=== PATIENT | female | born 1990 | race Caucasian/White ===

== ENCOUNTER → 2020-08-23 12:42 | Outpatient (REF) | payer OTHER, SELFPAY ==
--- NOTE | 2020-08-23 12:48 | CA_ITS ---
Transthoracic Echocardiogram Patient (Last, First, Middle): Ricarda Rivero L Gender: Female Date of : 1990 Age: 29 Procedure Date: 08/23/2020 Procedure Type: Transthoracic Echocardiogram Location: OP Height: 177.8 cm Weight: 81.65 kg BSA: 2.00 m2 Heart Rate: bpm BP: 122 / 70 mmHg Assembler Tractor: ROSANA Referring MD: Alexey Quintana MD Symptoms: Orthostatic hypotension, Syncope, unspecified syncope type. Study Quality: Fair ECG Rhythm: Sinus Conclusions: - The left ventricular systolic function is normal. The visually estimated ejection fraction is between 65-70%. - No obvious valvular pathology seen on this study. Findings Left Ventricle Normal left ventricular cavity size. There is normal left ventricular wall thickness. The left ventricular systolic function is normal. The visually estimated ejection fraction is between 65-70%. There is no evidence of regional wall motion abnormalities. Diastolic function is normal for age. Right Ventricle Normal right ventricular cavity size and systolic function. Atria The left atrium is normal in size. The right atrium is normal in size. Aortic Valve There is a normal trileaflet aortic valve. There is no aortic valve stenosis. There is no aortic valve regurgitation. Mitral Valve The mitral valve appears normal. There is trace mitral valve regurgitation. There is no mitral valve stenosis. Pulmonic Valve The pulmonic valve was not well visualized. Tricuspid Valve Normal tricuspid valve structure. There is trace tricuspid valve regurgitation. The pulmonary artery systolic pressure is normal. Great Vessels The aortic annulus, sinuses of valsalva, and asc aorta are normal in size. Venous The inferior vena cava is normal in size and collapses greater than 50% with inspiration. Pericardium/Pleural There is no evidence of pericardial effusion. Prior Study Comparison No prior study available for comparison. Recommendations, Care & Conclusions No obvious valvular pathology seen on this study. Measurements 2D Linear Measurements IVSd: 0.80 0.6-0.9/0.6-1.0 cm LVIDd: 4.50 3.9-5.3/4.2-5.9 cm LVIDd Index: 2.25 2.4-3.2/2.2-3.1 cm/m2 LVIDs: 2.88 2.0-3.6 cm LVPWd: 0.80 0.7-1.1 cm Ao Root: 2.50 2.1-3.5 cm LA Diam: 3.30 2.7-3.8/3.0-4.0 cm LAIDs Index: 1.65 1.5-2.3 cm/m2 LV Mass: 141.41 67-162/88-224 g LV Mass Index: 70.70 43-95/49-115 g/m2 LVOT Diam: 2.00 3.0+(-)1.3 cm 2D Systolic Function EF 4C: 74.80 >55% EF 2C: 67.60 >55% Mitral Valve MV Pk E: 0.85 MV PK A: 0.51 MV Decel Time: 310.00 E/A: 1.70 E'Lateral: 18.80 E'Medial: 13.10 E/E' Med: 6.50 E/E' Lat: 4.50 PHT: 91.00 MVA PHT: 2.42 Decel Alfalfa: 2.74 Aortic Valve AoV Pk Ti: 1.42 AoV Mn Ti: 1.00 AoV VTI: 0.29 AoV Pk Grad: 8.00 Aov Mn Grad: 4.00 SHIELA Cont.VTI: 2.40 LVOT LVOT Pk Ti: 1.13 LVOT Mn Ti: 0.75 LVOT VTI: 0.23 LVOT Pk Grad: 5.00 LVOT Mn Grad: 3.00 LVOT Diam: 2.00 LVOT Area: 3.14 Diastolic Function MV Pk E: 0.85 MV Pk A: 0.51 E/A: 1.70 E'Medial: 13.10 E/E' Med: 6.50 E' Laterial: 18.80 E/E' Lat: 4.50 Tricuspid Valve TR Pk Ti: 2.59 TR Pk Grad: 27.00 RA Press: 3.00 RVSP: 30.00 Great Vessels Aorta Ao Root-2D: 2.50 2.0-3.7 cm Ao Asc: 2.50 2.1-3.4 cm Ao Arch: 2.30 Updated in Other Vendor System with Status of Final Alexey Quintana MD electronically signed on 08/24/2020 4:45:24 PM with status of Final
== END ==
LOC: HO.CARD 12:42
PROVIDERS: PCP Internal Medicine; Visit Provider Internal Medicine
DX: I95.1 Orthostatic hypotension (principal)
CPT/HCPCS: 93306

== ENCOUNTER → 2020-08-30 10:58 | Outpatient (BNVA) | payer OTHER, SELFPAY | PROVIDERS: PCP Internal Medicine; Visit Provider Internal Medicine | DX: I95.1 Orthostatic hypotension (principal); R94.09 Abnormal results of other function studies of central nervous system; R55 Syncope and collapse | CPT/HCPCS: 93005; 99212 ==

== ENCOUNTER 2020-11-26 09:31 | Emergency (ER) | payer OTHER, SELFPAY ==
[2020-11-26 10:00] VITALS: BP 127/88; PULSE 78; RESP 16; TEMP 37.1; O2SAT 100; BMI 26.6
--- NOTE | 2020-11-26 10:09 | ED.ALLEREA ---
HPI - Allergic Reaction General Chief complaint: Allergic Reaction Stated complaint: allergic reaction Time Seen by Provider: 11/26/20 10:09 Source: patient and EMS Mode of arrival: EMS Limitations: no limitations History of Present Illness HPI narrative: 30 y/o female with history of autonomic dysfunction and chronic hives presents to the ER from home via EMS for painful, itchy hives all over her body. She reports they started 2 days ago and was seen at [facility] ER. She was started on Prednisone with initial improvement in her symptoms. Today she woke up with worsening of her hives all of her upper legs, scattered areas on her arms, back and trunk as well as left upper eye. She denies any mouth or airway involvement. No SOB or wheezing. She has had several episodes of hives like this but not since 2018. She was evaluated by Derm and budget specialist in the past, only determined allergy was crab. No known exposure to seafood recently, no new soaps, lotions or detergents. MD complaint: hives Onset (ago): day(s) Exposure: unknown Symptoms: rash and itching Severity: similar to previous episodes Treatment prior to arrival: benadryl and steroids Previous Allergic Reaction History: prior ED visit(s) Related Data Home Medications Medication Instructions Recorded Confirmed acyclovir 400 mg tablet 400 mg PO BID 08/30/20 08/30/20 albuterol sulfate 90 mcg/actuation 2 puff INHALATION QID PRN 08/30/20 08/30/20 aerosol inhaler betamethasone dipropionate 0.05 % appl TOPICAL BID PRN 08/30/20 08/30/20 topical cream fluticasone propionate 50 1 spray INTRANASAL DAILY 08/30/20 08/30/20 mcg/actuation nasal spray,suspension gabapentin 100 mg capsule 100 mg PO TID 08/30/20 08/30/20 hydroxyzine HCl 10 mg tablet 10 mg PO TID 08/30/20 08/30/20 norethindrone 1 mg-ethinyl 1 tab PO DAILY 08/30/20 08/30/20 estradiol 20 mcg (21)-iron 75 mg (7) tablet Allergies Allergy/AdvReac Type Severity Reaction Status Date / Time Iodinated Contrast Media Allergy Severe HIVES, SOB Verified 08/30/20 11:10 [CONTRAST, IV] acetaminophen [From VICODIN] Allergy Unknown HIVES Verified 08/30/20 11:10 hydrocodone [From VICODIN] Allergy Unknown HIVES Verified 08/30/20 11:10 shellfish derived Allergy Unknown HIVES Verified 08/30/20 11:10 [SHELLFISH DERIVED] tree nut [TREE NUT] Allergy Unknown HIVES Verified 08/30/20 11:10 From PERTUSSIN CS Allergy Unknown LETHARGY Uncoded 08/30/20 11:10 GRASS Allergy Unknown HIVES Uncoded 08/30/20 11:10 NARCOTICS Allergy Unknown THROAT Uncoded 08/30/20 11:10 CLOSES percocet AdvReac Unknown vomiting Uncoded 08/30/20 11:10 Review of Systems Review of Systems: Constitutional: No Fever, No Chills ENT/Mouth: No sore throat, No Rhinorrhea, No Swallowing Difficulty Eyes: + Eye Pain, No Swelling, + Redness, No vision changes Cardiovascular: No Chest Pain, No SOB, No Orthopnea, No Edema Respiratory: No Cough, No Sputum, No Wheezing, No dyspnea Gastrointestinal: No Nausea, No Vomiting, No Diarrhea, No abdominal Pain Genitourinary: No Dysuria, No Urinary Frequency, No Hematuria Musculoskeletal: No joint pain, No Myalgias Skin: + Skin Lesions,+ rash Neuro: No Weakness, No Numbness, No Dizziness, No Headache Psych: No Anxiety/Panic, No Depression Heme/Lymph: No Bruising, No Lymphadenopathy PMFSH Past Medical History Attestation statement: The following information was validated with the patient. Medical History Abnormal tilt table test Orthostatic hypotension Pituitary adenoma Small fiber neuropathy Syncope and collapse Surgical History History of bilateral breast reduction surgery History of biopsy Family History Family History (Updated 08/30/20 @ 11:09 by ETELVINA Fu) Father No problems noted. Mother Hx of ovarian cancer Social History Social History (Updated 08/30/20 @ 11:09 by ETELVINA Fu) Alcohol intake: never Patient Tobacco Use Status: Never used Tobacco Use of substances other than those prescribed or required for medical reasons: No Advance Directives: No Advance Directives Information Provided: Yes Physical Exam Vital Signs: Vital Signs: Last Vital Signs Temp 98.7 F 11/26/20 10:00 Pulse 78 11/26/20 10:00 Resp 16 11/26/20 10:00 BP 127/88 11/26/20 10:00 Pulse Ox 100 11/26/20 10:00 Body Mass Index 26.6 Appearance: Alert. Oriented X3. No acute distress. Eyes: Pupils equal, round and reactive to light. Left upper orbit with slightly raised urticarial lesion. No lid swelling. EOMI. ENT: Pharynx normal. Normal lips, uvula midline, normal tongue. Neck: Normal inspection. Neck supple. CVS: Normal heart rate and rhythm. Pulses normal. Respiratory: No respiratory distress. Breath sounds normal. Abdomen: Soft and nontender. +BS x4 Skin: Skin warm and dry. Diffuse erythematous maclopapular urticarial rash on anterior and posterior upper legs bilaterally with scattered lesions on bilateral arms, back and trunk. Extremities: No lower extremity edema. Neuro: Oriented X 3. No motor deficit. No sensory deficit. Course Course Course Narrative: 30 y/o female with history of chronic urticaria presenting with acute exacerbation. No airway involvement. Unknown trigger. Vitals are stable and lungs are clear. Will give IV solumedrol, benadryl and pepcid and re-evaluate. Reevaluation(s) Reevaluation #1: Patient reported dizziness with IV benadryl now resolved. Hives are significantly improved. She is stable for discharge home with continuation of prednisone 60 mg as well as benadryl and pepcid PO. She agrees to f/u with her Sales Professional and Bath Solution Maker moving forward. Critical Care Time Critical Care Time Critical Care Time: No Discharge Plan Discharge Clinical Impression: Urticaria Patient Disposition: Home, Self-Care Instructions: Urticaria (ED) Additional Instructions: Continue taking your prednisone as prescribed. Recommend continuing Benadryl 25-50 mg every 6-8 hours. Recommend following back up with your Bath Solution Maker and Sales Professional. If you develop new or worsening symptoms call 911 or come back to the ER for further evaluation. Prescriptions: No Action gabapentin 100 mg capsule 100 mg PO TID RF: 0 albuterol sulfate 90 mcg/actuation HFA aerosol inhaler 2 puff inhalation QID PRN (Reason: wheezing) RF: 0 fluticasone propionate 50 mcg/actuation spray,suspension 1 spray intranasal DAILY RF: 0 norethindrone-e.estradiol-iron 1 mg-20 mcg (21)/75 mg (7) tablet 1 tab PO DAILY RF: 0 hydroxyzine HCl 10 mg tablet 10 mg PO TID RF: 0 betamethasone dipropionate 0.05 % cream topical BID PRNRF: 0 acyclovir 400 mg tablet 400 mg PO BID RF: 0
[2020-11-26] MEDS: Famotidine/PF 20 MG/2 ML VIAL IVPUSH (11:22)
[2020-11-26] MEDS: diphenhydrAMINE HCL 50 MG/ML VIAL IVPUSH (11:29)
[2020-11-26] MEDS: methylPREDNISolone Sod Succ 125 MG/2 ML VIAL IVPUSH (11:29)
[2020-11-26 12:30] VITALS: BP 115/74; PULSE 84; RESP 16; O2SAT 100
--- NOTE | 2020-11-26 12:35 | PC.NURSE ---
rash on both arms have faded since being given medications.
--- NOTE | 2020-11-26 12:56 | PC.NURSE ---
Patient given discharge instructions and verbalized understanding. Rash has significantly improved since arrival in ER. Pt is amb to exit in no distress
== END 2020-11-26 12:57 | disposition home or self-care (01) ==
PROVIDERS: Emergency Provider Emergency Medicine Emergency Medical Services; PCP Internal Medicine
DX: L50.9 Urticaria, unspecified (principal)
CPT/HCPCS: 96374; 96375; 99284; J1200; J2930

== ENCOUNTER 2021-09-17 08:19 | Emergency (ER) | payer OTHER, SELFPAY ==
--- NOTE | ~2021-09-17 | CT_ITS ---
EXAMINATION: CT HEAD WITHOUT CONTRAST CLINICAL INFORMATION: Fall. Head injury. COMPARISON: None TECHNIQUE: Contiguous axial imaging was performed from the skull base to vertex without intravenous administration of contrast. This CT examination was performed using dose optimization techniques as appropriate, variously including the following: *Automated exposure control *Adjustment of mA and/or kV according to patient size (this includes techniques or standardized protocols for targeted exams where dose is matched to indication/reason for exam; i.e. extremities or head) *Use of iterative reconstruction technique DLP: 649 mGy-cm FINDINGS: There is no evidence of acute intracranial hemorrhage or territorial infarction. No abnormal mass effect or midline shift is seen. Sweet to white matter differentiation is well preserved. No extra-axial fluid collections are identified. The ventricles are normal in size. There is no abnormal attenuation within the brain parenchyma. The osseous structures and soft tissues are normal. The mastoid air cells and visualized portions of the paranasal sinuses are well aerated. CT/CT head/brain wo con IMPRESSION: No acute intracranial pathology.
[2021-09-17 08:20] VITALS: BP 138/92; PULSE 105; RESP 17; TEMP 36.3; O2SAT 97; BMI 28.7
[2021-09-17 08:34] LABS: Basophils Percent Auto 0.3 % (0-2); Eosinophils Absolute Auto 0.1 X10*3/uL (0.0-0.4); Eosinophils Percent Auto 1.3 % (0-4); Hematocrit 40.6 % (37.0-47.0); Hemoglobin 13.7 g/dl (12.0-16.0); Imm Gran Abs Auto 0.01 X10*3/uL (0.00-0.03); Imm Gran Pct Auto 0.2 % (0.0-0.4); Lymphocytes Absolute Auto 2.6 X10*3/uL (1.2-4.9); Lymphocytes Percent Auto 42.8 % (20-40); MANUAL DIFF FLAG NO; Mean Corpuscular HGB Conc 33.7 g/dl (31.0-35.0); Mean Corpuscular Hemoglobin 30.4 pg (27.0-33.0); Mean Platelet Volume 9.5 fL (9.4-12.3); Monocytes Absolute Auto 0.5 X10*3/uL (0.1-1.2); Monocytes Percent Auto 7.8 % (2-11); Neutrophils Absolute Auto 2.9 x10*3/uL (2.0-8.3); Neutrophils Percent Auto 47.6 % (45-73); Platelet Count 300 X10*3/uL (160-400); Red Blood Count 4.51 X10*6/uL (4.20-5.50)
[2021-09-17 08:53] LABS: Alanine Aminotransferase 34 U/L (0-31); Albumin Level 3.7 g/dL (3.5-5.0); Alkaline Phosphatase 103 U/L (39-117); Anion Gap 13 (12-20); Aspartate Amino Transferase 30 U/L (5-31); Bilirubin Total 0.4 mg/dL (0.0-1.0); Blood Urea Nitrogen 8 mg/dL (9-16); Calcium 9.5 mg/dL (8.4-10.2); Carbon Dioxide 22 mmol/L (22-29); Chloride 107 mmol/L (96-108); Creatinine Clr Calc Pharmacy 138.3; Estimated Glomerular Filt Rate > 60; Glucose Random 93 mg/dL (60-115); Sodium 138 mmol/L (135-145); Total Protein 7.3 g/dL (6.5-8.0)
--- NOTE | 2021-09-17 09:26 | ED_ITS ---
HPI - General Adult General Chief complaint: General Medical Stated complaint: Hit Head 36 Hrs Ago N/V Time Seen by Provider: 09/17/21 08:30 Source: patient Mode of arrival: other (ambulatroy with cane assistance, per her baseline) Limitations: no limitations History of Present Illness HPI narrative: Patient is a 30 year old female presenting to the emergency department today requesting evaluation after a fall. Patient states that approximately 36 hours ago, she fell and bumped her head on a cabinet. Patient denies hitting anything else in the incident and denies any loss of consciousness. Patient states that she felt fine and then woke up this morning with a bloody nose and vomited once. Patient states that she has a history of dysautonomia with neuropathy and has to use a cane to ambulate at her baseline. Patient states that she would just like to be checked out. Patient denies any head or neck pain. Patient denies any current dizziness, lightheadedness, abdominal pain, nausea, vomiting, fever, chills, blurry vision, double vision, loss of vision, chest pain, difficulty breathing, shortness of breath, back pain, night sweats, pain with urination, increased urinary frequency, increased urinary urgency, blood in her urine or stool, syncope or a near syncopal episode, recent trauma or falls, bowel incontinence, bladder incontinence, bowel retention, bladder retention, or any other complaints at this time. Onset (ago): hour(s) Location: head Relieving factors: none Exacerbating factors: none Treatments prior to arrival: none Related Data Home Medications Medication Instructions Recorded Confirmed acyclovir 400 mg tablet 400 mg PO BID 08/30/20 08/30/20 albuterol sulfate 90 mcg/actuation 2 puff INHALATION QID PRN 08/30/20 08/30/20 aerosol inhaler betamethasone dipropionate 0.05 % appl TOPICAL BID PRN 08/30/20 08/30/20 topical cream fluticasone propionate 50 1 spray INTRANASAL DAILY 08/30/20 08/30/20 mcg/actuation nasal spray,suspension gabapentin 100 mg capsule 100 mg PO TID 08/30/20 08/30/20 hydroxyzine HCl 10 mg tablet 10 mg PO TID 08/30/20 08/30/20 norethindrone 1 mg-ethinyl 1 tab PO DAILY 08/30/20 08/30/20 estradiol 20 mcg (21)-iron 75 mg (7) tablet Allergies Allergy/AdvReac Type Severity Reaction Status Date / Time Iodinated Contrast Media Allergy Severe HIVES, SOB Verified 08/30/20 11:10 [CONTRAST, IV] acetaminophen [From VICODIN] Allergy Unknown HIVES Verified 08/30/20 11:10 hydrocodone [From VICODIN] Allergy Unknown HIVES Verified 08/30/20 11:10 shellfish derived Allergy Unknown HIVES Verified 08/30/20 11:10 [SHELLFISH DERIVED] tree nut [TREE NUT] Allergy Unknown HIVES Verified 08/30/20 11:10 From PERTUSSIN CS Allergy Unknown LETHARGY Uncoded 08/30/20 11:10 GRASS Allergy Unknown HIVES Uncoded 08/30/20 11:10 NARCOTICS Allergy Unknown THROAT Uncoded 08/30/20 11:10 CLOSES percocet AdvReac Unknown vomiting Uncoded 08/30/20 11:10 Review of Systems Constitutional: Constitutional: Reports no additional constitutional complaints, Denies chills, Denies fever(s) and Denies night sweats Eyes: Eyes: Reports no additional eye complaints, Denies blurry vision, Denies change in vision, Denies diplopia, Denies eye discharge, Denies loss of vision and Denies eye pain ENT: Denies dizziness Cardiovascular: Cardiovascular: Reports no additional cardiovascular complaints, Denies chest pain, Denies lightheadedness, Denies Loss of Consciousness and Denies dyspnea Respiratory: Respiratory: Reports no additional respiratory complaints and Denies dyspnea Gastrointestinal: Gastrointestinal: Reports no additional gastrointestinal complaints, Denies abdominal pain, Denies melena, Denies hematochezia, Denies change in bowel habits and Denies change in stool character Genitourinary: Genitourinary: Denies hematuria, Denies urinary frequency, Denies dysuria, Denies urinary incontinence, Denies urinary hesitancy and Denies urinary urgency Musculoskeletal: Musculoskeletal: Reports no additional musculoskeletal com plaints, Denies numbness and Denies tingling Neurologic: Denies dizziness, Denies loss of vision, Denies numbness and Denies tingling Psychiatric: Psychiatric: Reports no additional psychiatric complaints Endocrine: Endocrine: Reports no additional endocrine complaints Hematologic/Lymphatic: Hematologic/Lymphatic: Reports no additional hematologic/lymphatic complaints Allergic/Immunologic: Allergic/Immunologic: Reports no additional allergic/immunologic complaints [facility] Past Medical History Attestation statement: The following information was validated with the patient. Source: old records reviewed Medical History Abnormal tilt table test Orthostatic hypotension Pituitary adenoma Small fiber neuropathy Syncope and collapse Surgical History History of bilateral breast reduction surgery History of biopsy Family History Family History Father No problems noted. Mother Hx of ovarian cancer Social History Social History Alcohol intake: never Patient Tobacco Use Status: Never used Tobacco Advance Directives: Yes Advance Directives Information Provided: No Advance Directives on File: No Physical Exam ED Vital Signs: Vital Signs - 24 hr 09/17/21 08:20 Temperature 97.4 F Pulse Rate 105 H Respiratory Rate 17 Blood Pressure 138/92 H Pulse Oximetry 97 BMI result Body Mass Index 28.7 Const General: cooperative, no acute distress, alert and awake Nutritional Appearance: well nourished Orientation/consciousness: patient oriented x3 Limitations: no limitations HENMT Other: small hematoma to the right parietal scalp but otherwise unremarkable Ears: hearing grossly normal bilaterally and external ears normal General nose exam: Normal external nose present, no nasal discharge noted and no epistaxis Face and sinus: Yes normal facial exam, No abrasion and No laceration Mouth: Normal oral and palatal mucosa present, no drooling and no muffled voice Eyes General: appearance normal, both eyes and all related structures Periorbital: periorbital findings normal Eyelids: Yes eyelids normal Conjunctivae: conjunctivae normal Pupils: Equal, round and reactive pupils present EOM: EOMs intact bilaterally Neck Neck: Yes normal visual inspection, Yes full ROM and Yes no lymphadenopathy Chest Chest palpation & inspection: normal inspection of the chest Resp Effort & Inspection: normal respiratory effort and able to speak in complete sentences Auscultation: clear to auscultation bilaterally Cardio Rate: regular rate Rhythm: regular rhythm GI Inspection: Yes normal to inspection Neuro General: patient oriented x3 and moves all extremities Cranial nerves: Yes Equal, round and reactive pupils present Cognition (Neuro): normal cognition Motor exam (neuro): 5/5 motor strength present throughout Sensory Exam: Normal double simultaneous stimulation for sensation Coordination: [id number] test normal Extrem General: Yes normal to inspection, Yes full ROM and Yes capillary refill normal Psych Appearance: grossly normal Mental Status: mental status grossly normal Affect: normal affect Attitude: cooperative Thought process: Normal thought process present Thought content: Normal thought content present Insight: Good insight present (Psych) NIH Stroke Scale Internal: Initial- Upon Arrival Time: 09:00 Level of Consciousness: Alert Level of Consciousness Questions: Answers both questions correctly Level of Consciousness Commands: Performs both tasks correctly Best Gaze: Normal Visual: No visual loss Facial Palsy: Normal Motor Arm (Right): No drift Motor Arm (Left): No drift Motor Leg (Right): No drift Motor Leg (Left): No drift Limb Ataxia: Absent Sensory: Normal Best Language: No aphasia Dysarthia: Normal Extinction and Inattention: No abnormality Score: 0 Medical Decision Making MDM Narrative Medical decision making narrative: Patient is a 30 year old female presenting to the emergency department today after a fall. Patient's physical exam showed a small hematoma to the right parietal scalp but was otherwise unremarkable. Patient's blood work was unremarkable. Patient's head CT showed no acute process. I explained my physical exam findings as well as all test results to the patient. I answered all questi ons asked by the patient. I stressed the importance of the patient taking her medication as prescribed. I stressed the importance of the patient following up with her primary care provider and neurologist. I stressed the importance of the patient returning to the emergency department immediately if her symptoms were to worsen or if she were to develop any dizziness, shortness of breath, difficulty breathing, chest pain, blurry vision, loss of vision, nausea, vomiting, abdominal pain, fever, chills, back pain, or any other complaints. Patient verbalized agreement and understanding with this treatment plan and discharge. Differential Diagnosis Differential Diagnosis: concussion, fall Medical Records Medical records reviewed: Yes I reviewed the patient's medical records. Lab Data Lab results reviewed: Yes I reviewed the patient's lab results. Result diagrams: 09/17/21 08:29 09/17/21 08:29 Labs: Lab Results 09/17/21 09/17/21 Range/Units 08:29 08:29 WBC 6.0 (4.8-10.8) X10*3/uL RBC 4.51 (4.20-5.50) X10*6/uL Hgb 13.7 (12.0-16.0) g/dl Hct 40.6 (37.0-47.0) % MCV 90.0 (80.0-98.0) fL MCH 30.4 (27.0-33.0) pg MCHC 33.7 (31.0-35.0) g/dl RDW 12.0 (11.0-16.0) % Plt Count 300 (160-400) X10*3/uL MPV 9.5 (9.4-12.3) fL Immature Gran % (Auto) 0.2 (0.0-0.4) % Neut % (Auto) 47.6 (45-73) % Lymph % (Auto) 42.8 H (20-40) % [place] % (Auto) 7.8 (2-11) % Eos % (Auto) 1.3 (0-4) % Baso % (Auto) 0.3 (0-2) % Lymph # (Auto) 2.6 (1.2-4.9) X10*3/uL [place] # (Auto) 0.5 (0.1-1.2) X10*3/uL Eos # (Auto) 0.1 (0.0-0.4) X10*3/uL Baso # (Auto) 0.0 (0.0-0.2) X10*3/uL Abs Immat Gran (auto) 0.01 (0.00-0.03) X10*3/uL Absolute Neuts (auto) 2.9 (2.0-8.3) x10*3/uL Absolute Nucleated RBC 0.000 (0.0-0.012) X10*3/uL Nucleated RBC % (auto) 0.0 (0.0-0.2) /100WBC Sodium 138 (135-145) mmol/L Potassium 4.0 (3.3-5.1) mmol/L Chloride 107 (96-108) mmol/L Carbon Dioxide 22 (22-29) mmol/L Anion Gap 13 (12-20) BUN 8 L (9-16) mg/dL Creatinine 0.72 (0.5-1.4) mg/dL Estim Creat Clear Calc 138.3 Estimated GFR > 60 Random Glucose 93 (60-115) mg/dL Calcium 9.5 (8.4-10.2) mg/dL Total Bilirubin 0.4 (0.0-1.0) mg/dL AST 30 (5-31) U/L ALT 34 H (0-31) U/L Alkaline Phosphatase 103 (39-117) U/L Total Protein 7.3 (6.5-8.0) g/dL Albumin 3.7 (3.5-5.0) g/dL Imaging Data CT scan - head: Attestation: I personally reviewed and interpreted this imaging study as follows: My impression: No acute process. Radiologist's impression: EXAMINATION: CT HEAD WITHOUT CONTRAST CLINICAL INFORMATION: Fall. Head injury.? COMPARISON: None TECHNIQUE: Contiguous axial imaging was performed from the skull base to vertex without intravenous administration of contrast. This CT examination was performed using dose optimization techniques as appropriate, variously including the following: *Automated exposure control *Adjustment of mA and/or kV according to patient size (this includes techniques or standardized protocols for targeted exams where dose is matched to indication/reason for exam; i.e. extremities or head) *Use of iterative reconstruction technique DLP: 649 mGy-cm FINDINGS: There is no evidence of acute intracranial hemorrhage or territorial infarction. No abnormal mass effect or midline shift is seen. Sweet to white matter differentiation is well preserved. No extra-axial fluid collections are identified. The ventricles are normal in size. There is no abnormal attenuation within the brain parenchyma. The osseous structures and soft tissues are normal. The mastoid air cells and visualized portions of the paranasal sinuses are well aerated. CT/CT head/brain wo con IMPRESSION: No acute intracranial pathology. Dictated By: Peter Goff MD Signed By: Electronically signed by Peter Goff MD 09/17/21 1032 Discharge Plan Discharge Clinical Impression: Concussion, Fall Patient Disposition: Home, Self-Care Instructions: Concussion (ED), Fall Prevention (ED) Additional Instructions: Follow up with your primary care provider. Return to the emergency department immediately if your symptoms worsen or if you develop any dizziness, shortness of breath, difficulty breathing, chest pain, blurry vision, loss of vision, nausea, vomiting, abdominal pain, fever, chills, back pain, or any other complaints. Prescriptions: No Action gabapentin 100 mg capsule 100 mg PO TID 0RF albuterol sulfate 90 mcg/actuation HFA aerosol inhaler 2 puff inhalation QID PRN (Reason: wheezing) 0RF fluticasone propionate 50 mcg/actuation spray,suspension 1 spray intranasal DAILY 0RF norethindrone-e.estradiol-iron 1 mg-20 mcg (21)/75 mg (7) tablet 1 tab PO DAILY 0RF hydroxyzine HCl 10 mg tablet 10 mg PO TID 0RF betamethasone dipropionate 0.05 % cream topical BID PRN0RF acyclovir 400 mg tablet 400 mg PO BID 0RF Referrals: Nikolai De Souza III, MD [Primary Care Provider] - Print Language: Estonian
[2021-09-17 10:48] VITALS: BP 114/85; PULSE 76; RESP 18; O2SAT 100
== END 2021-09-17 10:52 | disposition home or self-care (01) ==
PROVIDERS: Emergency Provider Emergency Medicine; PCP Internal Medicine
DX: S06.0X0A Concussion without loss of consciousness, initial encounter (principal); R51.9 Headache, unspecified; R29.700 NIHSS score 0; Y29.XXXA Contact with blunt object, undetermined intent, initial encounter; Y93.9 Activity, unspecified; Y92.009 Unspecified place in unspecified non-institutional (private) residence as the place of occurrence of the external cause; Y99.9 Unspecified external cause status; Z79.899 Other long term (current) drug therapy
CPT/HCPCS: 36415; 70450; 80053; 85025; 99281; 99283

== ENCOUNTER → 2021-09-28 14:22 | Outpatient (BNVA) | payer OTHER, SELFPAY | PROVIDERS: PCP Internal Medicine; Referring Provider Internal Medicine; Visit Provider Internal Medicine | DX: I95.1 Orthostatic hypotension (principal); R94.09 Abnormal results of other function studies of central nervous system; R55 Syncope and collapse | CPT/HCPCS: 93005; 99212 ==

== ENCOUNTER 2021-10-03 12:44 | Emergency (ER) | payer OTHER, SELFPAY ==
[2021-10-03 12:47] VITALS: BP 154/82; PULSE 88; RESP 18; TEMP 36.4; O2SAT 99; BMI 31.1
--- NOTE | 2021-10-03 14:12 | ED_ITS ---
HPI - General Adult General Chief complaint: Epistaxis Stated complaint: infection possible bloodclot Time Seen by Provider: 10/03/21 14:12 Source: patient Mode of arrival: ambulatory Limitations: no limitations History of Present Illness HPI narrative: Patient is a 30 year old female presenting to the emergency department today with intermittent nose bleeds and a right nasal polyp. Patient states that she has been having intermittent nose bleeds and saw her PCP who recommended she come to the ER to have her nasal polyp cauterized. Patient denies any dizziness, lightheadedness, abdominal pain, nausea, vomiting, fever, chills, blurry vision, double vision, loss of vision, chest pain, difficulty breathing, shortness of breath, back pain, night sweats, pain with urination, increased urinary frequ ency, increased urinary urgency, blood in her urine or stool, syncope or a near syncopal episode, recent trauma or falls, bowel incontinence, bladder incontinence, bowel retention, bladder retention, or any other complaints at this time. Onset (ago): day(s) Severity: mild Severity scale (1-10): 1 Relieving factors: none Exacerbating factors: none Associated symptoms: denies other symptoms Treatments prior to arrival: none Related Data Home Medications Medication Instructions Recorded Confirmed acyclovir 400 mg tablet 400 mg PO BID 08/30/20 09/28/21 albuterol sulfate 90 mcg/actuation 2 puff inhalation QID PRN wheezing 08/30/20 09/28/21 aerosol inhaler betamethasone dipropionate 0.05 % appl topical BID PRN 08/30/20 09/28/21 topical cream fluticasone propionate 50 1 spray intranasal DAILY 08/30/20 09/28/21 mcg/actuation nasal spray,suspension gabapentin 100 mg capsule 100 mg PO TID 08/30/20 09/28/21 hydroxyzine HCl 10 mg tablet 10 mg PO TID 09/28/21 09/28/21 Allergies Allergy/AdvReac Type Severity Reaction Status Date / Time Iodinated Contrast Media Allergy Severe HIVES, SOB Verified 10/03/21 12:47 [CONTRAST, IV] acetaminophen [From VICODIN] Allergy Unknown HIVES Verified 10/03/21 12:47 hydrocodone [From VICODIN] Allergy Unknown HIVES Verified 10/03/21 12:47 shellfish derived Allergy Unknown HIVES Verified 10/03/21 12:47 [SHELLFISH DERIVED] tree nut [TREE NUT] Allergy Unknown HIVES Verified 10/03/21 12:47 From PERTUSSIN CS Allergy Unknown LETHARGY Uncoded 09/28/21 14:36 GRASS Allergy Unknown HIVES Uncoded 09/28/21 14:36 NARCOTICS Allergy Unknown THROAT Uncoded 09/28/21 14:36 CLOSES percocet AdvReac Unknown vomiting Uncoded 09/28/21 14:36 Review of Systems Constitutional: Constitutional: Reports no additional constitutional complaints, Denies chills, Denies fever(s) and Denies night sweats Eyes: Eyes: Reports no additional eye complaints, Denies blurry vision, Denies change in vision, Denies diplopia, Denies eye discharge, Denies loss of vision and Denies eye pain ENT: Denies dizziness Comments: right nasal polyp Cardiovascular: Cardiovascular: Reports no additional cardiovascular complaints, Denies chest pain, Denies lightheadedness, Denies Loss of Consciousness and Denies dyspnea Respiratory: Respiratory: Reports no additional respiratory complaints and Denies dyspnea Gastrointestinal: Gastrointestinal: Reports no additional gastrointestinal complaints, Denies abdominal pain, Denies melena, Denies hematochezia, Denies change in bowel habits and Denies change in stool character Genitourinary: Genitourinary: Denies hematuria, Denies urinary frequency, Denies dysuria, Denies urinary incontinence, Denies urinary hesitancy and Denies urinary urgency Musculoskeletal: Musculoskeletal: Reports no additional musculoskeletal c omplaints, Denies numbness and Denies tingling Neurologic: Denies dizziness, Denies loss of vision, Denies numbness and Denies tingling Psychiatric: Psychiatric: Reports no additional psychiatric complaints Endocrine: Endocrine: Reports no additional endocrine complaints Hematologic/Lymphatic: Hematologic/Lymphatic: Reports no additional hematologic/lymphatic complaints Allergic/Immunologic: Allergic/Immunologic: Reports no additional allergic/immunologic complaints [facility] Past Medical History Attestation statement: The following information was validated with the patient. Source: old records reviewed Medical History Abnormal tilt table test Orthostatic hypotension Pituitary adenoma Small fiber neuropathy Syncope and collapse Surgical History History of bilateral breast reduction surgery History of biopsy Family History Family History Father No problems noted. Mother Hx of ovarian cancer Social History Social History Alcohol intake: never Patient Tobacco Use Status: Never used Tobacco Advance Directives: No Advance Directives Information Provided: No Physical Exam ED Vital Signs: Vital Signs - 24 hr 10/03/21 12:47 Temperature 97.6 F Pulse Rate 88 Respiratory Rate 18 Blood Pressure 154/82 H Pulse Oximetry 99 Oxygen Delivery Method Room Air BMI result Body Mass Index 31.1 Const General: cooperative, no acute distress, alert and awake Nutritional Appearance: well nourished Orientation/consciousness: patient oriented x3 Limitations: no limitations HENMT Head: Yes normal to inspection and Yes atraumatic Ears: hearing grossly normal bilaterally and external ears normal General nose exam: Normal external nose present, no nasal discharge noted, no epistaxis and Nasal polyp present on the right Face and sinus: Yes normal facial exam, No abrasion and No laceration Mouth: Normal oral and palatal mucosa present, no drooling and no muffled voice Eyes General: appearance normal, both eyes and all related structures Periorbital: periorbital findings normal Eyelids: Yes eyelids normal Conjunctivae: conjunctivae normal Pupils: Equal, round and reactive pupils present EOM: EOMs intact bilaterally Neck Neck: Yes normal visual inspection, Yes full ROM and Yes no lymphadenopathy Chest Chest palpation & inspection: normal inspection of the chest Resp Effort & Inspection: normal respiratory effort and able to speak in complete sentences Auscultation: clear to auscultation bilaterally Cardio Rate: regular rate Rhythm: regular rhythm GI Inspection: Yes normal to inspection Neuro General: patient oriented x3 and moves all extremities Cranial nerves: Yes Equal, round and reactive pupils present Cognition (Neuro): normal cognition Motor exam (neuro): 5/5 motor strength present throughout Sensory Exam: Normal double simultaneous stimulation for sensation Coordination: [id number] test normal Extrem General: Yes normal to inspection, Yes full ROM and Yes capillary refill normal Psych Appearance: grossly normal Mental Status: mental status grossly normal Affect: normal affect Attitude: cooperative Thought process: Normal thought process present Thought content: Normal thought content present Insight: Good insight present (Psych) Medical Decision Making MDM Narrative Medical decision making narrative: Patient is a 30 year old female presenting to the emergency department today with intermittent nose bleeds and a right nasal polyp. Patient's physical exam showed a nasal polyp in the right nostril without active bleeding. I explained my physical exam findings as well as all test results to the patient. I answered all questions asked by the patient. I stressed the importance of the patient taking her medication as prescribed. I stressed the importance of the patient following up with her primary care provider and an ENT specialist. I stressed the importance of the patient returning to the emergency department immediately if her symptoms were to worsen or if she were to develop any dizziness, shortness of breath, difficulty breathing, chest pain, blurry vision, loss of vision, nausea, vomiting, abdominal pain, fever, chills, back pain, or any other complaints. Patient verbalized agreement and understanding with this treatment plan and discharge. Differential Diagnosis Differential Diagnosis: Nasal polyp Medical Records Medical records reviewed: Yes I reviewed the patient's medical records. Discharge Plan Discharge Clinical Impression: Nasal polyp Patient Disposition: Home, Self-Care Instructions: Nasal Polyps (ED) Additional Instructions: Follow up with your primary care provider and an ENT specialist. Return to the emergency department immediately if your symptoms worsen or if you develop any dizziness, shortness of breath, difficulty breathing, chest pain, blurry vision, loss of vision, nausea, vomiting, abdominal pain, fever, chills, back pain, or any other complaints. Prescriptions: No Action gabapentin 100 mg capsule 100 mg PO TID albuterol sulfate 90 mcg/actuation HFA aerosol inhaler 2 puff inhalation QID PRN (Reason: wheezing) fluticasone propionate 50 mcg/actuation spray,suspension 1 spray intranasal DAILY betamethasone dipropionate 0.05 % cream topical BID PRN acyclovir 400 mg tablet 400 mg PO BID hydroxyzine HCl 10 mg tablet 10 mg PO TID Referrals: [facility] [Provider Group] Nikolai De Souza III, MD [Primary Care Provider] - Interventions: ED Discharge Assessment Last Done: 10/03/21 14:30 Discharge Date/Time: 10/03/21 14:38 Print Language: Iranian
== END 2021-10-03 14:38 | disposition home or self-care (01) ==
PROVIDERS: Emergency Provider Emergency Medicine; PCP Internal Medicine
DX: J33.0 Polyp of nasal cavity (principal)
CPT/HCPCS: 99283

== ENCOUNTER 2024-12-09 13:30 | Emergency (ER) | payer MEDICARE, MEDICAID, SELFPAY ==
[2024-12-09 13:47] VITALS: BP 129/70; PULSE 98; RESP 18; TEMP 36.6; O2SAT 98; BMI 34.0
--- NOTE | 2024-12-09 13:47 | ED.GENADULT ---
HPI - General Adult General Chief complaint: General Medical Stated complaint: Possible rabies exposure Time Seen by Provider: 12/09/24 14:15 Source: patient, family and RN notes reviewed Mode of arrival: ambulatory Limitations: no limitations History of Present Illness ED Provider: Verónica Villegas PA-C HPI narrative: This is a [id number], 5 months and dystonia, who presents to the ED with concerns for bat exposure.Bat was inside her home. She reports no known bites or wound from bat. Never received rabies series before. She is feeling well no current complaints. No fevers, chills, vaginal bleeding, discharge, chest pain or shortness of breath. No other complaints or concerns at this time. MD complaint: Bat exposure Onset (ago): hour(s) Radiation: non-radiation Relieving factors: none Exacerbating factors: none Associated symptoms: denies other symptoms Treatments prior to arrival: none Related Data Home Medications ?Medication ?Instructions ?Recorded ?Confirmed acyclovir 400 mg tablet 400 mg PO BID 08/30/20 09/28/21 albuterol sulfate 90 mcg/actuation 2 puff inhalation QID PRN wheezing 08/30/20 09/28/21 aerosol inhaler betamethasone dipropionate 0.05 % appl topical BID PRN 08/30/20 09/28/21 topical cream fluticasone propionate 50 1 spray intranasal DAILY 08/30/20 09/28/21 mcg/actuation nasal spray,suspension gabapentin 100 mg capsule 100 mg PO TID 08/30/20 09/28/21 hydroxyzine HCl 10 mg tablet 10 mg PO TID 09/28/21 09/28/21 Allergies Allergy/AdvReac Type Severity Reaction Status Date / Time Iodinated Contrast Media Allergy Severe HIVES, SOB Verified 12/09/24 13:48 (CONTRAST, IV) acetaminophen (From VICODIN) Allergy Unknown HIVES Verified 12/09/24 13:48 hydrocodone (From VICODIN) Allergy Unknown HIVES Verified 12/09/24 13:48 shellfish derived (SHELLFISH Allergy Unknown HIVES Verified 12/09/24 13:48 DERIVED) tree nut (TREE NUT) Allergy Unknown HIVES Verified 12/09/24 13:48 From PERTUSSIN CS Allergy Unknown LETHARGY Uncoded 12/09/24 13:48 GRASS Allergy Unknown HIVES Uncoded 12/09/24 13:48 NARCOTICS Allergy Unknown THROAT Uncoded 12/09/24 13:48 CLOSES percocet AdvReac Unknown vomiting Uncoded 12/09/24 13:48 Review of Systems Review of Systems: Yes all other systems are reviewed and are negative Constitutional: Constitutional: Reports as per HPI [facility] Past Medical History Medical History Abnormal tilt table test Orthostatic hypotension Pituitary adenoma Small fiber neuropathy Syncope and collapse Surgical History History of bilateral breast reduction surgery History of biopsy Family History Family History Father No problems noted. Mother Hx of ovarian cancer Social History Social History Alcohol intake: never Patient Tobacco Use Status: Never used Tobacco Do you have a plan to hurt others: No Plan Physical Exam ED Exam Exam: General: Awake, alert, and oriented X3. No acute distress. HEENT: Normal inspection CVS: Normal heart rate and rhythm. Pulses normal. Respiratory: No respiratory distress Skin: Warm, dry, no rashes noted to exposed skin. Normal skin color. Normal skin turgor. Extremities: Normal to inspection. Neuro: Oriented X 3. No motor deficit. No sensory deficit. Vital Signs: Vital Signs - 24 hr 12/09/24 13:47 Temperature 98 F Pulse Rate 98 Respiratory Rate 18 Blood Pressure 129/70 Pulse Oximetry 98 Oxygen Delivery Method Room Air BMI result Body Mass Index 34.0 Course Course Course Narrative: This is a Rapid Medical Examination (RME) performed by Crissy Rivera PA-C in triage. Full HPI, ROS, assessment and treatment plan per primary provider in the Main ED. Hx: 34 yo F, 5 mo here w/ concerns for rabies exposure. reports seeing a bat fly into her daughter room through the AC vent on (6 days ago), reports grabbing her daughter and immediately calling her brother who removed the bat on arrival. bat was inside her home for approx 30 mins. no contact. called clerical proofreader who advised they all come to the ED for shots. denies symptoms. Plan: rabies series Medical Decision Making Medical Decision Making MDM Narrative: This is a 34-year-old female who presents emergency department after being exposed to a bat in her house on December 04. She reports no known contact with the bite. She is 5 months . Discussed with my attending physician, it is advised for patient to get the rabies series. We will start with immunoglobulin and rabies shot today. Will also refer to the infusion center for further management. Given strict return precautions. She is feeling well, asymptomatic. Stable for discharge Differential Diagnosis Differential Diagnoses: The differential diagnosis associated with the presentation includes Rabies exposure, rabies prophylaxis, bat exposure, animal bite Discharge Plan Discharge Clinical Impression: Rabies, need for prophylactic vaccination against Patient Disposition: Home, Self-Care Instructions: Rabies (ED) Additional Instructions: We started the rabies vaccination series due to recent exposure to a bat. Rabies follow up with the [facility] Infusion [facility]: Upon discharge from the ED today, you will be contacted by the Infusion Center to schedule your follow up Rabies vaccines. You will need a total of 3 more injections. If for some reason you do not receive a call, please call the Infusion Center directly at [phone]. Follow up with your primary care provider after completion of the vaccine to have a titer drawn to ensure the vaccines effectiveness. If any new or worsening symptoms occur including but not limited to severe chest pain, shortness of breath, headache, dizziness, blurred vision, changes in behavior, please seek emergent care. Prescriptions: No Action gabapentin 100 mg capsule 100 mg PO TID albuterol sulfate 90 mcg/actuation HFA aerosol inhaler 2 puff inhalation QID PRN (Reason: wheezing) fluticasone propionate 50 mcg/actuation spray,suspension 1 spray intranasal DAILY betamethasone dipropionate 0.05 % cream topical BID PRN acyclovir 400 mg tablet 400 mg PO BID hydroxyzine HCl 10 mg tablet 10 mg PO TID Print Language: Slovenian
[2024-12-09] MEDS: Rabies Vaccine (PCEC)/PF 1 ML VIAL IM (15:51)
[2024-12-09] MEDS: Rabies Immune Globulin/PF 900 UNIT/3 ML VIAL 2150 UNIT IM (15:51)
[2024-12-09 16:22] VITALS: BP 129/70; PULSE 98; RESP 18; TEMP 36.6; O2SAT 98
--- OUTSIDE RECORDS SUMMARY | 2024-12-09 16:39 | XMS_ITS | Encounter Summary ---
[place] [address] Care Team Providers Care Electric Tape Slitter Name Role Phone Nikolai De Souza MD Primary Care Provider [phone] Encounter Details Date Type Department Care Team (Late st Contact Info) Description 12/01/2024 Telephone Obstetrics and Gynecology - [place] [place] [id number] Mahsa Tucker MA Social History Tobacco Use Types Packs/Day Years Used Date Smoking Tobacco: Never Smokeless Tobacco: Never Alcohol Use Standard Drinks/Week Comments No 0 (1 standard drink = 0.6 oz pur e alcohol) Housing Instability Answer Date Recorde d Are you worried that in the next 2 months you may not have stable housing? No 10/05/2024 Food Access & Nutrition Answer Date Rec orded Do you have access to a vari ety of food including fruits and vegetables? Yes 10/05/2024 Access to Healthcare Answer Date Record ed Within the last 3 months, ho w many times did you visit the emergency department for your medical care? 0 10/05/2024 Health Literacy Answer Date Recorded How often do you need to hav e someone help you when you read instructions, pamphlets, or other written material from your doctor or pharmacy? Rarely 10/05/2024 Caregiver: How often do you need to have someone help you when you read instructions, pamphlets, or other written material from your doctor or pharmacy? Not on file 10/05/2024 Financial Risk Answer Date Recorded How hard is it for you to pa y for the very basics like food, housing, medical care, and air conditioning / heating? Somewhat hard 10/05/2024 Transportation Answer Date Recorded Has the lack of transportati on kept you from meetings, work, or from getting things needed for daily living? Yes Has the lack of transportati on kept you from medical appointments or from getting medications? No 10/05/2024 Social Isolation Answer Date Recorded How often do you feel lonely or isolated from th ose around you? Never 10/05/2024 Food Risk Answer Date Recorded Within the past 12 months we worried whether our food would run out before we got money to buy more. Sometimes true 025 Within the past 12 months th e food we bought just didn't last and we didn't have money to get more. Never true 10/05/2024 Dependent Care Answer Date Recorded Do you need help finding or paying for care for your loved ones. For example, child adolescent care or elderly care for an older adult? No 10/05/2024 Education Answer Date Recorded Do you think completing more education or training, like finishing a GED, going to college, or learning a trade, would be helpful for you? No 10/05/2024 Employment and Income Answer Date Recor ded During the last four weeks, have you been actively looking for work? No 10/05/2024 Living Situation Answer Date Recorded What is your living situation? 0 10/05/2024 Estimated Date of Delivery Comme nts Yes 05/09/2025 Based on last me nstrual period of 08/02/2024 (Exact Date) Sex and Gender Information Value Date Recorded Sex Assigned at Not on file Legal Sex Female 5:10 PM EDT Gender Identity Not on file Sexual Orientation Not on file documented as of this encounter Progress Notes * Radha Cazares CNM - 12/02/2024 6:03 PM EDT Order is placed, but it is flagging patient needs to sign the waiver in order for the order to be signed. * Mahsa Tucker MA - 12/01/2024 1:53 PM EDT Patient is aware and would like to do testing. Pt will go to the lab when order is placed. * Mahsa Tucker MA - 12/01/2024 1:53 PM EDT ----- Message from Faby Cazares CNM sent at 12/01/2024 12:00 PM EDT ----- I did not discuss AFP at her visit. Please call patient offer the Alpha protein AFP screeningfor neural tube defects a common one that people are aware of is spina bifida. This is done [id number] weeks. If she desires please let me know and I will order. She does need to sign the waiver for her insurance. Radha Cazares CNM documented in this encounter Plan of Treatment Upcoming Encounters Date Type Department Care Team (Late st Contact Info) Description 12/24/2024 8:00 AM EDT Ancillary Procedure Maternal Medicine - [address] [phone] 12/24/2024 8:00 AM EDT Consult Maternal Medicine - [address] [phone] 01/01/2025 9:30 AM EDT Routine Obstetrics and Gynecology - [address] [phone] Radha Cazares CNM [address] [place] [address] 06/09/2025 9:00 AM EST Office Visit [facility] - [address] [phone] Nikolai De Souza MD [address] [place] [id number] documented as of this encounter Visit Diagnoses Diagnosis care, subsequent in second trimester- Primary 17 weeks gestation of documented in this encounter Additional Health Concerns Assessment Noted Time PHQ-9 Depression Total Score: 0 11/26/19 25 11:41 PM EDT documented as of this encounter Care Teams Electric Tape Slitter Relationship Specialty Start Date End Date Nikolai De Souza MD [address] [place] [id number] PCP - General 05/09/06 documented as of this encounter
== END 2024-12-09 16:22 | disposition home or self-care (01) ==
PROVIDERS: Emergency Provider Emergency Medicine; PCP Internal Medicine
DX: Z20.3 Contact with and (suspected) exposure to rabies (principal); Z23 Encounter for immunization
CPT/HCPCS: 90375; 90471; 90675; 96372; 99282; 99284

== ENCOUNTER 2024-12-23 08:30 | Outpatient (RCR) | payer MEDICARE, MEDICAID, SELFPAY ==
[2024-12-12 08:26] VITALS: BP 140/93; PULSE 88; RESP 16; TEMP 36.9; O2SAT 98
[2024-12-12] MEDS: Rabies Vaccine (PCEC)/PF 1 ML VIAL IM (08:34)
[2024-12-16 08:53] VITALS: BP 116/76; PULSE 85; RESP 16; TEMP 36.6; O2SAT 99
[2024-12-16] MEDS: Rabies Vaccine (PCEC)/PF 1 ML VIAL IM (09:00)
[2024-12-16 09:11] VITALS: BP 126/89; PULSE 68; RESP 16; TEMP 36.5; O2SAT 97
[2024-12-23 08:31] VITALS: BP 123/77; PULSE 67; RESP 18; TEMP 36.2
[2024-12-23] MEDS: Rabies Vaccine (PCEC)/PF 1 ML VIAL IM (08:38)
== END 2024-12-23 08:46 | disposition home or self-care (01) ==
LOC: HO.INF 08:30
PROVIDERS: Visit Provider Physician Assistant Medical
DX: Z20.3 Contact with and (suspected) exposure to rabies (principal)
CPT/HCPCS: 90471; 90675

== ENCOUNTER 2025-03-18 14:32 | Outpatient (AMB) | payer MEDICARE, MEDICAID, SELFPAY ==
--- NOTE | 2025-03-18 14:39 | MHC.OFFVIS ---
Intake Visit Reasons: Dysautonomia (Conf.) Allergies Iodinated Contrast Media (CONTRAST, IV) Allergy (Severe, Verified 12/09/24 13:48) HIVES, SOB acetaminophen (From VICODIN) Allergy (Unknown, Verified 12/09/24 13:48) HIVES hydrocodone (From VICODIN) Allergy (Unknown, Verified 12/09/24 13:48) HIVES shellfish derived (SHELLFISH DERIVED) Allergy (Unknown, Verified 12/09/24 13:48) HIVES tree nut (TREE NUT) Allergy (Unknown, Verified 12/09/24 13:48) HIVES From PERTUSSIN CS Allergy (Unknown, Uncoded 12/09/24 13:48) LETHARGY GRASS Allergy (Unknown, Uncoded 12/09/24 13:48) HIVES NARCOTICS Allergy (Unknown, Uncoded 12/09/24 13:48) THROAT CLOSES percocet Adverse Reaction (Unknown, Uncoded 12/09/24 13:48) vomiting HPI Comments Details: This is a 34-year-old woman who was 1st seen by me in 2016 and presented in May of 2016 with a history of recurrent syncopal episodes. ?On March 14, 2016 she started a new job in [place]. She fainted at work and since then has had at least 6 or more episodes of syncope, averaging 1-2/week, the last one was 2 days ago when it happened twice. Usually she may call for help and then she falls down. She's been reported to have hit her head but there were no injuries. Her eyes flutter and she remains unresponsive and limp. There is no seizure activity. There is no dizziness, chest pain or palpitation. She comes out of it. She's had no further nausea or vomiting. She has been confined to her home and her car is at home as she is not allowed to drive. She has 24-hour supervision by her parents. Prior to this she had been living with her boyfriend and had gotten a new car for which she has to make payments. She started a new job but was fired on day 1. She's been having hives that have gone undiagnosed. She is on multiple medications for it. He sees an bulb weeder. According to her parents. She is always had problems with anxiety. Even when she was a girl every time some stressful situation came, she would start vomiting. She claims that she has no stress and anxiety. No seizure like episodes are reported. She is scheduled to have a 30 day cardiac event monitor in 10 days. No Holter monitor has been done. She had a brain MRI which I reviewed and found to be normal. The possibility of a pituitary microadenoma was raised but it is not definitive. Her visual field defects apparently showed tunneling of vision in by lateral can constriction of her temporal feels. It appears to be functional. Funduscopic examination is normal. She has not been seen in [place] where the diagnosis of dysautonomia was confirmed and changed to pure autonomic failure. She has a positive skin biopsy with 67% neurons. She has been treated symptomatically with midodrine 10 mg t.i.d. which she went off in 2021. She had 2 years of physical therapy. She had a allergic reaction to fludrocortisone. Her last syncopal episode was 5 months ago when she was 3 months . [facility] Medical History (Updated 03/18/25 @ 14:57 by Luna Cho MD) Dysautonomia Small fiber neuropathy Pituitary adenoma Syncope and collapse Abnormal tilt table test Orthostatic hypotension Surgical History History of biopsy History of bilateral breast reduction surgery Family History Father No problems noted. Mother Hx of ovarian cancer Social History Alcohol intake: never Patient Tobacco Use Status: Never used Tobacco Review of Systems Const Details: Sleep:? Difficulty getting to sleep?denies.? Difficulty maintaining sleep?denies?.? Urge to move legs?denies.? Teeth grinding?denies.? Shouting or Kicking during sleep?denies.? Abnormal behavior during sleep?denies.? Excessive sleep?admits.? Snoring?admits.? Daytime sleepiness?denies.? ?? General/Constitutional:? Change in appetite?denies.? Chills?admits.? Fatigue?admits.? Fever?denies.? Weight gain?denies.? Weight loss?denies.? ?? Ophthalmologic:? Blurred vision?admits.? Diminished visual acuity?admits.? ?? ENT:? Stuffiness?admits.? Decreased hearing?denies.? Dry mouth?denies.? Ear pain?admits.? Nosebleed?admits.? Ringing in the ears?denies.? Sinus pain?admits.? Sore throat?denies.? Swollen glands?denies.? ?? Endocrine:? Cold intolerance?denies.? Excessive thirst?denies.? Frequent urination?denies.? Heat intolerance?denies.? ?? Respiratory:? Shortness of breath?admits.? Chest pain?denies.? Cough?denies.? ?? Breast:? Breast lump?admits.? Nipple discharge?denies.? ?? Cardiovascular:? Chest pain at rest?admits.? Chest pain with exertion?denies.? Claudication?denies.? Dizziness?denies.? Fluid accumulation in the legs?denies.? Irregular heartbeat?denies.? Palpitations?denies.? ?? Gastrointestinal:? Abdominal pain?denies.? Constipation?denies.? Diarrhea?denies.? Difficulty swallowing?denies.? Heartburn?admits.? Nausea?admits.? Rectal bleeding?denies.? ?? Hematology:? Easy bruising?admits.? Prolonged bleeding?denies.? ?? Genitourinary:? Frequent urination?denies.? Urgency?denies.? Incontinence?denies.? Erectile Dysfunction?denies.? ?? Musculoskeletal:? Neck pain?admits.? Back pain?admits.? Muscle aches?admits.? Painful joints?admits.? Sciatica?denies.? Weakness?denies.? ?? Podiatric:? Difficulty walking?denies.? Foot numbness?denies.? ?? Neurologic:? Difficulty swallowing?denies.? Balance difficulty?admits.? Coordination?normal.? Difficulty speaking?denies.? Dizziness?admits.? Fainting?recurrent.? Gait abnormality?denies.? Headache?admits.? Loss of strength?denies.? Loss of use of extremity?denies.? Low back pain?denies.? Memory loss?admits.? Seizures?denies.? Tics?denies.? Tingling/Numbness?admits.? Transient loss of vision?denies.? Tremor?denies.? ?? Psychiatric:? Anxiety?admits.? Auditory/visual hallucinations?denies.? Delusions?denies.? Depressed mood?denies.? Stressors?admits.? Substance abuse?denies.? Suicidal thoughts?denies.? ?? Reports fatigue ENT Reports dizziness and Reports sinus pain Card Details: Multiple syncopal episodes since February 2016 Reports syncope GI Reports heartburn and Reports vomiting Neuro Reports dizziness and Reports syncope Endo Reports fatigue Physical Exam Neuro Other: Neurological: ? Abnormal neurological findings:?Bitemporal visual field loss on confrontation that varies to some degree on examination. Funduscopic examination is entirely normal. She is obviously depressed and anxious..? Mental Status:?alert and oriented X 3,?Normal attention, orientation, memory and affect.? Cranial Nerves:?Pupils are equal, round and reactive to light. Fundoscopy shows normal disc bilaterally. External occular muscles are intact. Visual flores are full, no ptosis. Face is symmetrical, no facial weakness or droop. Facial sensations are normal. Tongue protrudes in midline. Palate elevates symmetrically. Shoulder shrugging is normal..? Motor Examination:?Normal muscle tone, bulk and strength,?No atrophy or fasciculations,?No drift of the extended upper extremities,?Deep tendon reflexes are 2+?,?Plantars are flexor?.? Straight Leg Raising:?90 degrees.? Sensory Exam:?Normal light touch, temperature, pinprick, vibration and joint-position sensations?,?Rhomberg sign is absent.? Coordination:?no ataxia,?no titubation,?[id number], [id number]-[id number] test and rapid alternating movements were normal.? Gait Exam:?Within normal limits.? Cerebellar Signs:?Kzrucr-uy-jics and [id number] is normal,?no dysdiadochokinesia?.? Extrapyramidal System:?No tremor, rigidity with normal facial expressions,?No bradykinesia, no bradyphrenia. Normal arm swing and posture. No propulsion or retropulsion.? Speech:?Normal,?no dysphasia or dysarthria..? Mini Mental Status Exam: ? Level of Consciousness:?Alert.? Orientation:?Knows correct year, month, date, day and season,?Knows correct city, county and state. Knows correct location and floor.? Registration:?Able to register 3 objects.? Attention:?Serial 7's performed accurately.? Recall:?Able to recall 3 out of 3 objects.? Language:?Normal spontaneous speech, fluency, repetition,naming, comprehension, reading and writing.? Total Score ?30/30.? General Examination: ? GENERAL APPEARANCE:?normal,?in no acute distress.? HEAD:?normocephalic,?atraumatic.? EYES:?sclera non-icteric,?conjunctiva clear.? EARS:?auditory canal clear,?tympanic membrane intact, clear.? NOSE:?no lesions.? ORAL CAVITY:?gums normal,?mucosa moist,?no lesions.? THROAT:?clear.? NECK/THYROID:?no cervical lymphadenopathy,?thyroid normal,?neck supple, full range of motion,?no carotid bruit.? SKIN:?no rashes,?no significant birthmarks.? HEART:?S1, S2 normal,?no murmurs.? LUNGS:?clear anteriorly and posteriorly.? CHEST:?no gross rib deformity,?clear to auscultation.? BACK:?normal exam of spine.? EXTREMITIES:?no edema.? PERIPHERAL PULSES:?normal.? PSYCH:?alert, oriented,?cognitive function intact,?cooperative with exam.? Assessment & Plan Assessment & Plan (1) Recurrent syncope: Comment: MRI of the brain reviewed and found to be normal except for a possibility of a small pituitary microadenoma. 05/01/16. EEG: Probably normal waking EEG with rare bifrontal sharp theta discharges. Clinical correlation is suggested Endocrine workup is negative Visual flores show concentric filed constriction. Tilt table test was reported as showing orthostatic hypotension, but the numbers don't bailey that out . There is only one drop to 101/55 that is 6 minute safter SL NTG. Code(s): R55 - Syncope and collapse Category: Medical (2) Pure autonomic failure: Comment: Positive skin biopsy in [place]. Code(s): G90.9 - Disorder of the autonomic nervous system, unspecified Category: Medical (3) Small fiber neuropathy: Code(s): G62.9 - Polyneuropathy, unspecified Category: Medical Plan She is currently 8 months into her 2nd with a FOSTER of 04/30/2025. Her last syncopal episode was 5 months ago. She gets enough of a warning that she can sit down and put her legs up. She has been encouraged to increase her salt and fluid intake continue exercises of her legs, use support hose as necessary and take precautions when she gets up quickly or starts to feel lightheaded. She is currently off her midodrine. In the past she had a reaction to fludrocortisone. Coding Level of Care Code New Pt Level 5 (33037) Diagnoses Recurrent syncope R55 Pure autonomic failure G90.9 Small fiber neuropathy G62.9
--- OUTSIDE RECORDS SUMMARY | 2025-03-18 17:19 | XMS_ITS ---
Author Name [facility] Organization Unknown Care Team Organization Name Specialty Phone Email Start Date End Da te [facility] 12/10/2024 [facility] 02/28/2022
== END 2025-03-18 15:04 | disposition home or self-care (01) ==
LOC: HO.HSM 14:32
PROVIDERS: Visit Provider Psychiatry & Neurology Neurology
DX: R55 Syncope and collapse (principal); G90.9 Disorder of the autonomic nervous system, unspecified; G62.9 Polyneuropathy, unspecified
CPT/HCPCS: 99205

== ENCOUNTER → 2025-03-18 14:32 | Outpatient (BNVA) | payer MEDICARE, MEDICAID, SELFPAY | PROVIDERS: Visit Provider Psychiatry & Neurology Neurology | DX: R55 Syncope and collapse (principal); G90.9 Disorder of the autonomic nervous system, unspecified; G62.9 Polyneuropathy, unspecified | CPT/HCPCS: 99202 ==